=== PATIENT | female | born 1980 | race Two or more races ===

== ENCOUNTER 2017-02-24 11:16 | Emergency (ER) | payer MEDICAID ==
[~2017-02-24] VITALS: Ht 162.6 cm; Wt 90.7 kg
[2017-02-24 11:20] VITALS: BP 107/72
[2017-02-24 11:58] LABS: APPEARANCE,URINE CLEAR; BILIRUBIN, URINE NEGATIVE (NEGATIVE); COLOR,URINE PALE YELLOW; GLUCOSE, URINE (UA) NEGATIVE (NEGATIVE); KETONES,URINE NEGATIVE (NEGATIVE); LEUKOCYTE ESTERASE ,URINE NEGATIVE (NEGATIVE); NITRITE,URINE NEGATIVE (NEGATIVE); PH,URINE 5 (4.5-8.0); PROTEIN,URINE NEGATIVE (NEGATIVE); UROBILINOGEN,URINE NORMAL MG/DL (0.0-1.0)
[2017-02-24] MEDS ORDERED: ACETAMINOPHEN-1 EAC1 ORAL (13:17)
--- NOTE | 2017-02-24 13:32 | Diagnostic Imaging Report ---
Indication: Pelvic pain Technique: Transabdominal and endovaginal pelvic ultrasound was performed. Findings: The uterus measures 8.5 x 6.1 x 3.7 cm. Endometrial echocomplex measures 8.6 meters in thickness. 2 heterogeneous masses are noted within the anterior aspect of the uterus, one measuring 1.6 x 1.8 cm and another measuring 2.5 x 1.5 cm. These demonstrate some internal vascularity upon interrogation with color Doppler. 2 additional similar-appearing lesions are noted within the posterior aspect of the uterus. A 0.6 x 0.8 cm cystic lesion is noted in the cervix compatible with a nabothian cyst. The right ovary measures 2.3 x 1.6 x 1.4 cm/2.6 mL. The left ovary measures 2.8 x 1.7 x 1.3 cm/3.1 mL. Color flow to the bilateral ovaries noted. No appreciable adnexal masses seen. Trace free fluid noted in the pelvis. Impression: Multiple heterogeneous uterine masses possibly representing fibroids. Clinical correlation recommended. More definitive assessment and be made with contrast-enhanced MRI of the pelvis. Bilateral ovaries symmetric in size with documented color flow. No evidence to suggest ovarian torsion at this time. Nabothian cysts in the cervix. Small amount of free pelvic fluid.
[2017-02-24 13:38] VITALS: BP 123/75
--- NOTE | 2017-03-01 18:22 | Emergency Room Report ---
History of Present Illness General Chief Complaint: General Complaint Source: Patient Present Illness HPI Patient is a 36 yo female who presented after increased low back pain. Patient had recently been diagnosed with UTI. Pain was lower and sharp in nature without specific exacerbating factors. She denied increased pain with flexion or standing. Patient denies fever or dysuria. She reports recent cough and congestion. She denies vomiting or being . Allergies: Coded Allergies: No Known Allergies (Unverified , 02/24/17) Patient History Reviewed Nursing Documentation: PMH: Agreed, PSxH: Agreed Nursing Documentation-PMH Past Medical History: No Stated History Review of Systems All Other Systems: negative except mentioned in HPI Physical Exam Vital Signs Date Time Temp Pulse Resp B/P (MAP) Pulse Ox O2 Delivery O2 Flow Rate FiO2 02/24/17 11:20 97.7 20 107/72 99 Room Air 02/24/17 11:20 66 General Appearance: well appearing, no apparent distress, alert, GCS 15, obese Head: normocephalic, atraumatic ENT: hearing grossly normal, normal voice Neck: full range of motion, supple Respiratory: no respiratory distress, speaking full sentences Cardiovascular #1: normal peripheral pulses, regular rate, rhythm, no edema Gastrointestinal: normal inspection, non tender, soft Genitourinary: no CVA tenderness Musculoskeletal: no calf tenderness, decreased range of mation Neurologic: normal gait Psychiatric: mood/affect normal Skin: no rash Medical Decision Making Diagnostic Impression: Primary Impression: Fibroid uterus Additional Impression: Nabothian cyst ER Course Patient presented for low back pain. Differential diagnosis included but was not limited pyelonephritis, pelvic inflammatory disease, fracture, epidural abscess among others. Because of patients complexity imaging studies and laboratory testing was ordered. Pelvic ultrasound read by radiology showed small amount of free fluid , fibroid uterus, without complex ovarian mass or cyst or abnormal ovarian arterial blood flow. Patient was given pain medications. She was advised to follow up with her digital photo printer in the next 1-2 days for recheck. She was to return for increased pain, fever, persistent vomiting or other concerns. Lab Results Impression Labs Test 02/24/17 11:45 Urine Color Pale yellow Urine Appearance Clear Urine pH 5 (4.5-8.0) Urine Specific [place] 1.015 (1.005-1.035) Urine Protein Negative (NEGATIVE) Urine Glucose (UA) Negative (NEGATIVE) Urine Ketones Negative (NEGATIVE) Urine Occult Blood Negative (NEGATIVE) Urine Nitrite Negative (NEGATIVE) Urine Bilirubin Negative (NEGATIVE) Urine Urobilinogen Normal MG/DL (0.0-1.0) Urine Leukocyte Esterase Negative (NEGATIVE) Urine HCG, Qualitative Negative Last Vital Signs Date Time Temp Pulse Resp B/P (MAP) Pulse Ox O2 Delivery O2 Flow Rate FiO2 02/24/17 13:38 72 18 123/75 99 Room Air 02/24/17 11:20 97.7 Status: improved Disposition: HOME, SELF-CARE Condition: Stable Scripts Acetaminophen With Codeine (T#3) (TYLENOL #3 TAB*) Y Tab 2 TAB ORAL Q6H Y for For Pain, #10 TAB Prov: Kendrick Bailey 02/24/17 Patient Instructions: Back Pain, Adult, [id number] Kendrick Bailey Mar 01, 2017 18:22
== END 2017-02-24 13:40 | disposition home or self-care (01) ==
LOC: EMR 11:25
DX: M54.5 Low back pain (principal); D25.9 Leiomyoma of uterus, unspecified; N88.8 Other specified noninflammatory disorders of cervix uteri
CPT/HCPCS: 76830; 76856; 81003; 81025; 99284

== ENCOUNTER 2018-06-24 23:19 | Emergency (ER) | payer MEDICAID, OTHER ==
[~2018-06-24] VITALS: Ht 154.9 cm; Wt 98.0 kg
[~2018-06-24 23:19] MED LIST: ACETAMINOPHEN-1 EAC1 ORAL; CEPHALEXIN500 MG ORAL; NAPROXEN500 M1 ORAL; NKM
[2018-06-24 23:45] VITALS: BP 113/73
--- NOTE | 2018-06-24 23:47 | NUR ---
ED Nurse Note: pt came to ed c/o vaginal itching since monday, pt states she bought OTC vaginal cream and itching went away. a few hours ago she had intercourse and bleeding was noted. pt states itching returned.
[2018-06-25] MEDS ORDERED: Acetaminophen 500mg (ES) tab ORAL ONE
[2018-06-25 00:31] LABS: APPEARANCE,URINE SLIGHTLY CLOUDY; BILIRUBIN, URINE NEGATIVE (NEGATIVE); COLOR,URINE PALE YELLOW; GLUCOSE, URINE (UA) NEGATIVE (NEGATIVE); KETONES,URINE NEGATIVE (NEGATIVE); LEUKOCYTE ESTERASE ,URINE 1+ (NEGATIVE); NITRITE,URINE NEGATIVE (NEGATIVE); PH,URINE 5 (4.5-8.0); PROTEIN,URINE NEGATIVE (NEGATIVE); UROBILINOGEN,URINE NORMAL MG/DL (0.0-1.0)
--- NOTE | 2018-06-25 01:01 | NUR ---
ED Nurse Note: ERMD notified regarding pelvic wet mount result.
--- NOTE | 2018-06-25 01:06 | Emergency Room Report ---
History of Present Illness General Chief Complaint: Female Urogenital Problems Source: Patient Present Illness HPI Patient presents with several days of discharge. Started using a cream earlier today. And she had sex with her and started having severe pain. She denies any dysuria. She also noted some bleeding after having intercourse. In addition to that she had rectal sex with her . She has some pain in that area also. She is not sure if the bleeding is coming per rectum or vaginally. She denies any fevers or chills. No nausea, vomiting diarrhea. Her last period was normal for her. She rates the pain 10/10 at this time and vaginally and more sharp burning and aching. She has not taken any medication. She denies any medical problems. 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 Last Menstrual Period: Jun 10 2018 Now: No Reviewed Nursing Documentation: PMH: Agreed; PSxH: Agreed Nursing Documentation-PMH Past Medical History: No Stated History Review of Systems All Other Systems: negative except mentioned in HPI Physical Exam Vital Signs Date Time Temp Pulse Resp B/P (MAP) Pulse Ox O2 Delivery O2 Flow Rate FiO2 06/24/18 23:33 98.6 77 18 98 Room Air 06/24/18 23:45 113/73 Sp02 EP Interpretation: reviewed, normal General Appearance: well appearing, no apparent distress Head: normocephalic, atraumatic Eyes: bilateral eye normal inspection, bilateral eye PERRL ENT: hearing grossly normal, normal voice Neck: full range of motion, supple Respiratory: no respiratory distress, speaking full sentences Gastrointestinal: normal bowel sounds, non tender, soft, overweight Rectal: other - fissure, small and non-bleeding Genitourinary: no CVA tenderness, adnexa normal, cervix normal, other - vaginal d/c, no active bleeding, no CMT, no external inflammation or lesions, min tenderness entroitus Musculoskeletal: no calf tenderness Neurologic: alert, oriented x3, normal gait, grossly normal Psychiatric: mood/affect normal Skin: no rash Medical Decision Making Diagnostic Impression: Primary Impression: Vaginitis Qualified Codes: N76.0 - Acute vaginitis Additional Impression: Rectal fissure ER Course Patient with vaginal pain after intercourse with discharge for several days. Ddx: vaginitis, UTI, trauma, fissure amongst others. Evaluation with UA. No active bleeding now. Also given analgesia. UA unremarkable. Wet mount with clue cells. Improved with treatment. Discussed need to follow up with Pot Maker. Advised to return if pain increases or increased bleeding. Patient stable for outpatient observation and treatment. Laboratory Tests Test 06/24/18 23:55 Urine Color Pale yellow Urine Appearance Slightly cloudy Urine pH 5 (4.5-8.0) Urine Specific [place] 1.005 (1.005-1.035) Urine Protein Negative (NEGATIVE) Urine Glucose (UA) Negative (NEGATIVE) Urine Ketones Negative (NEGATIVE) Urine Blood 4+ (NEGATIVE) H Urine Nitrite Negative (NEGATIVE) Urine Bilirubin Negative (NEGATIVE) Urine Urobilinogen Normal MG/DL (0.0-1.0) Urine Leukocyte Esterase 1+ (NEGATIVE) H Urine RBC 5-10 /HPF (0 - 2) H Urine WBC 0-2 /HPF (0 - 2) Urine Squamous Epithelial Cells Moderate /LPF (NONE/OCC) H Urine Amorphous Sediment Moderate /LPF (NONE) H Urine Bacteria Few /HPF (NONE) Urine HCG, Qualitative Negative (NEGATIVE) Microbiology Date/Time Source Procedure Growth Status 06/25/18 00:40 Vaginal Wet Prep - Final Complete Last Vital Signs Date Time Temp Pulse Resp B/P (MAP) Pulse Ox O2 Delivery O2 Flow Rate FiO2 06/25/18 01:16 98.7 68 21 128/57 100 Room Air Status: improved Disposition: HOME, SELF-CARE Condition: Improved Scripts Tramadol Hcl* (ULTRAM*) 50 Mg Tablet 50 MG ORAL Q6H PRN for For Pain, #8 TAB 0 Refills Prov: Nikolay Artis MD 06/25/18 Metronidazole* (FLAGYL*) 500 Mg Tablet 500 MG ORAL BID, #14 TAB Prov: Nikolay Artis MD 06/25/18 Bacitracin (Bacitracin) 28.4 Gm Oint...g. 1 APPLIC TOPIC BID, #20 GM Prov: Nikolay Artis MD 06/25/18 Referrals: [facility],REFERRING (PCP) Nikolay Artis MD June 25, 2018 01:06
[2018-06-25] MEDS ORDERED: METRONIDAZOLE500 MG ORAL (01:10)
[2018-06-25] MEDS ORDERED: TRAMADOL HCL50 MG ORAL (01:10)
[2018-06-25] MEDS ORDERED: BACITRACIN15 GM TOPIC (01:10)
[2018-06-25] MEDS ORDERED: metroNIDAZOLE 500mg tab ORAL ONE (01:15)
[2018-06-25 01:16] VITALS: BP 128/57
--- NOTE | 2018-06-25 01:17 | NUR ---
ER DISCHARGE NOTE: Patient is cleared to be discharged per ERMD, pt is aox4, on room air, with stable vital signs. pt was given dc and prescription instructions, pt was able to verbalize understanding, pt id band removed. pt is able to ambulate with steady gait. pt took all belongings.
== END 2018-06-25 01:18 | disposition home or self-care (01) ==
LOC: EMR 23:56
DX: N76.0 Acute vaginitis (principal); K60.2 Anal fissure, unspecified
CPT/HCPCS: 81003; 81025; 87210; 99283

== ENCOUNTER 2019-02-01 16:01 | Emergency (ER) | payer OTHER ==
[~2019-02-01] VITALS: Ht 160 cm; Wt 95.3 kg
[~2019-02-01 16:01] MED LIST changes: +BACITRACIN15 GM TOPIC; +METRONIDAZOLE500 MG ORAL; +TRAMADOL HCL50 MG ORAL
--- NOTE | 2019-02-01 16:15 | NUR ---
ED Nurse Note: patient ambulated to ed c/o abdominal pain nausea and vomitting x 0530. patient denies diarrhea. ao4. nad. vss. attached to monitor. changed into gown. iv access established. blood and urine collected; sent down to lab.
[2019-02-01 16:30] VITALS: BP 133/77
[2019-02-01 16:58] LABS: BASOPHILS % (AUTO) 0.3 % (0.0-2.0); EOSINOPHILS % (AUTO) 0.2 % (0.0-3.0); HEMATOCRIT 35.9 % (37.0-47.0); HEMOGLOBIN 11.4 G/DL (12.0-16.0); LYMPHOCYTES % (AUTO) 16.1 % (20.0-45.0); MEAN CORPUSCULAR VOLUME 76 FL (80-99); MONOCYTES % (AUTO) 3.9 % (1.0-10.0); NEUTROPHILS % (AUTO) 79.5 % (45.0-75.0); PLATELET COUNT 389 K/UL (150-450); RED BLOOD COUNT 4.75 M/UL (4.20-5.40); RED CELL DISTRIBUTION WIDTH 14.2 % (11.6-14.8)
[2019-02-01 17:15] LABS: APPEARANCE,URINE CLOUDY; BILIRUBIN, URINE NEGATIVE (NEGATIVE); GLUCOSE, URINE (UA) NEGATIVE (NEGATIVE); KETONES,URINE 1+ (NEGATIVE); LEUKOCYTE ESTERASE ,URINE 1+ (NEGATIVE); NITRITE,URINE NEGATIVE (NEGATIVE); PH,URINE 6 (4.5-8.0); PROTEIN,URINE 2+ (NEGATIVE); UROBILINOGEN,URINE NORMAL MG/DL (0.0-1.0)
[2019-02-01 17:17] LABS: ANION GAP 10 mmol/L (5-15); BLOOD UREA NITROGEN 12 mg/dL (7-18); CARBON DIOXIDE 27 MMOL/L (21-32); CHLORIDE 103 MMOL/L (98-107); CREATININE 0.6 MG/DL (0.55-1.30); POTASSIUM 3.5 MMOL/L (3.5-5.1); SODIUM 140 MMOL/L (136-145)
[2019-02-01 17:18] LABS: COLOR,URINE YELLOW
[2019-02-01 17:22] LABS: ALANINE AMINOTRANSFERASE 16 U/L (12-78); ALBUMIN 3.8 G/DL (3.4-5.0); ALBUMIN/GLOBULIN RATIO 0.9 (1.0-2.7); ALKALINE PHOSPHATASE 79 U/L (46-116); ASPARTATE AMINO TRANSFERASE 11 U/L (15-37); BILIRUBIN,TOTAL 0.3 MG/DL (0.2-1.0)
[2019-02-01 17:30] VITALS: BP 111/76
--- NOTE | 2019-02-01 17:47 | Emergency Room Report ---
History of Present Illness General Chief Complaint: Abdominal Pain Source: Patient Present Illness HPI 38-year-old female with no significant past medical history here complaining of 2 days of suprapubic pain and pressure, urinary frequency and urgency. Also complains of waking up this morning with left lower quadrant abdominal pain rating a 3 out of 10 upon palpation, and a few bouts of nonbloody emesis. Does not recall if she ate anything out of the ordinary last night. Denies any alcohol consumption, drug use, marijuana use, tobacco smoke. Complains of chills however vitals appear to be within normal limits. Reports that she is currently on her menses, has a Nexplanon implanted x6 months. Patient denies diarrhea and constipation at this time. Denies flatulence, recent travel, or any history of abdominal surgery. Patient is non-tender to palpation about the abdomen. I decided not to order CT scan of the abdomen as patient is nontender , vitals within normal limits, blood work within normal limits. Has not taken medication for symptom relief Allergies: Coded Allergies: No Known Allergies (Unverified , 02/24/17) Patient History Past Medical History: see triage record Past Surgical History: none Pertinent Family History: none Now: No Immunizations: UTD Reviewed Nursing Documentation: PMH: Agreed; PSxH: Agreed Nursing Documentation-PMH Past Medical History: No Stated History Review of Systems All Other Systems: negative except mentioned in HPI Physical Exam Vital Signs Date Time Temp Pulse Resp B/P (MAP) Pulse Ox O2 Delivery O2 Flow Rate FiO2 02/01/19 16:08 97.9 85 17 133/77 (95) 99 Room Air Sp02 EP Interpretation: reviewed, normal General Appearance: no apparent distress, alert, GCS 15, non-toxic Head: normocephalic, atraumatic Eyes: bilateral eye normal inspection, bilateral eye PERRL ENT: hearing grossly normal, normal pharynx, no angioedema, normal voice Neck: full range of motion, supple, no meningismus, no bony tend, supple/symm/ no masses Respiratory: chest non-tender, lungs clear, normal breath sounds, no rhonchi, no retraction, no wheezing, speaking full sentences Cardiovascular #1: regular rate, rhythm, no edema, no murmur, normal capillary refill Cardiovascular #2: 2+ carotid (R), 2+ carotid (L), 2+ radial (R), 2+ radial (L) Gastrointestinal: normal bowel sounds, non tender, soft, no mass, no organomegaly, no peritonitis, no bruit, non-distended, no guarding, no hernia, no pulsatile mass, no rebound, other - Negative McBurney's and Rovsing's Rectal: deferred Genitourinary: no CVA tenderness Musculoskeletal: back normal, no calf tenderness, pelvis stable Neurologic: alert, motor strength/tone normal, oriented x3, sensory intact, responsive, speech normal Psychiatric: judgement/insight normal, memory normal, mood/affect normal, no suicidal/homicidal ideation Skin: no rash Lymphatic: no adenopathy Medical Decision Making PA Attestation All my diagnosis and treatment plans were reviewed ad discussed with my supervising physician Dr. Cortez Diagnostic Impression: Primary Impression: UTI (urinary tract infection) Additional Impression: Nausea & vomiting ER Course 38-year-old female with no significant past medical history here complaining of 2 days of suprapubic pain and pressure, urinary frequency and urgency. Also complains of waking up this morning with left lower quadrant abdominal pain rating a 3 out of 10 upon palpation, and a few bouts of nonbloody emesis. Does not recall if she ate anything out of the ordinary last night. Denies any alcohol consumption, drug use, marijuana use, tobacco smoke. Complains of chills however vitals appear to be within normal limits. Reports that she is currently on her menses, has a Nexplanon implanted x6 months. Patient denies diarrhea and constipation at this time. Denies flatulence, recent travel, or any history of abdominal surgery. Patient is non-tender to palpation about the abdomen. I decided not to order CT scan of the abdomen as patient is nontender , vitals within normal limits, blood work within normal limits. Has not taken medication for symptom relief Ddx considered but are not limited to: UTI, pyelonephritis, urinary incontinence , prolapsed bladder, appendicitis, gastroenteritis Vital signs: are WNL, pt. is afebrile H&PE are most consistent with: UTI, nausea vomiting most likely secondary to viral gastroenteritis ORDERS: UA, urine cx, CBC, CMP, UA lipase, toxin, urine test, Zofran, Macrobid ED INTERVENTIONS: NS bolus, Zofran, Pepcid DISCHARGE: At this time pt. is stable for d/c to home. Will provide printed patient care instructions, and any necessary prescriptions. Care plan and follow up instructions have been discussed with the patient prior to discharge. Patient to follow-up with primary care provider, take medication as directed, if worsening symptoms return to emergency room. At this time no further imaging is necessary as patient is nontender to palpation and vital signs are within normal limits as well as blood work. Last Vital Signs Date Time Temp Pulse Resp B/P (MAP) Pulse Ox O2 Delivery O2 Flow Rate FiO2 02/01/19 16:30 97.9 85 17 133/77 99 Room Air Disposition: HOME, SELF-CARE Condition: Stable Scripts Nitrofurantoin Monohyd/M-Cryst* (MACROBID 100 MG*) 100 Mg Capsule 100 MG ORAL EVERY 12 HOURS for 7 Days, #14 CAP Prov: Dominique Wong 02/01/19 Ondansetron (Zofran) 4 Mg Tablet 4 MG ORAL Q6H PRN for Nausea & Vomiting, #14 TAB Prov: Dominique Wong 02/01/19 Patient Instructions: Abdominal Pain, Adult, Urinary Tract Infection, Easy-to- Read Additional Instructions: Take medication as directed, follow-up with your primary care provider, if worsening symptoms return to the emergency room Dominique Wong Feb 01, 2019 17:47
[2019-02-01] MEDS ORDERED: ZOFRAN4 M1 ORAL (17:53)
[2019-02-01] MEDS ORDERED: NITROFURANTOIN100 M2 ORAL (17:53)
[2019-02-01 18:00] VITALS: BP 133/77
--- NOTE | 2019-02-01 18:00 | NUR ---
ER DISCHARGE NOTE: Patient is cleared to be discharged per ERMD, pt is aox4, on room air, with stable vital signs. pt was given dc and prescription instructions, pt was able to verbalize understanding, pt id band and iv site removed without complications. pt is able to ambulate with steady gait. pt took all belongings.
== END 2019-02-01 18:00 | disposition home or self-care (01) ==
LOC: EMR 17:50
DX: N39.0 Urinary tract infection, site not specified (principal); R11.2 Nausea with vomiting, unspecified
CPT/HCPCS: 36415; 80053; 80307; 81003; 81025; 83690; 85025; 96361; 96374; 96375; J2405; J7030; S0028; Z7502; 99284

== ENCOUNTER 2019-03-27 04:06 | Emergency (ER) | payer OTHER ==
[~2019-03-27] VITALS: Ht 160 cm; Wt 95.3 kg
[2019-03-27 04:06] VITALS: BP 102/62
[~2019-03-27 04:06] MED LIST changes: +NITROFURANTOIN100 M2 ORAL; +ZOFRAN4 M1 ORAL
--- NOTE | 2019-03-27 04:06 | NUR ---
ED Nurse Note: Patient walked in from home d/t nausea and diarrhea for 2 days, denies vomiting. Patient aao x 4 and ambulatory. Patient states she has also has moderate vaginal bleeding for 3 weeks with clots and mid-abdominal pain 8/10, non-radiating. Patient placed in gown and tactical air control party. No acute distress noted. IV line initiated on Left AC, patent and draining. Blood and urine collected, sent to lab.
--- NOTE | 2019-03-27 04:33 | Emergency Room Report ---
History of Present Illness General Chief Complaint: Vaginal Source: Patient Present Illness HPI Disclaimer: Please note that this report is being documented using DRAGON technology. This can lead to erroneous entry secondary to incorrect interpretation by the dictating instrument. HPI: 38-year-old female presents for evaluation of diarrhea and nausea. Symptoms began 3 days ago. She noted some nonbloody diarrhea which resolved yesterday and then returned early this morning. States it is been near constant since onset. Denies hematochezia or melena. Denies dysuria. She reports nausea without vomiting. Reports abdominal soreness diffusely but no focal pain. States she feels warm but has no objective temperature readings at home. She took Tylenol prior to arrival. Patient is all complaining of increased vaginal spotting and passage of clots. Has been ongoing for 3 weeks when her last period started. She has an IUD in place since last year. Denies lightheadedness, dizziness, syncope, shortness of breath. Follows up regularly with STORY EDITOR. Denies vaginal discharge. PMH: Denies PSH: Denies Allergies: Denies Social Hx: Denies Allergies: Coded Allergies: No Known Allergies (Unverified , 02/24/17) Patient History Last Menstrual Period: bleeding snce mar 04 Nursing Documentation-PMH Past Medical History: No Stated History Review of Systems All Other Systems: negative except mentioned in HPI Physical Exam Vital Signs Date Time Temp Pulse Resp B/P (MAP) Pulse Ox O2 Delivery O2 Flow Rate FiO2 03/27/19 04:12 97.5 84 18 108/76 (87) 100 Room Air General: Awake and alert, no acute distress HEENT: NC/AT. EOMI. Cardiovascular: RRR. S1 and S2 normal. No murmur appreciated Resp: Normal work of breathing. No cough, wheezing or crackles appreciated Abdomen: Abdomen is soft, nondistended, obese. Mildly tender in the epigastrium , periumbilical and suprapubic region. No rebound. Negative Elise's. No CVA tenderness. Skin: Intact. No abrasions, laceration or rash over the exposed skin. Scar on the right flank clean dry and intact MSK: Normal tone and bulk. Moving all extremities. No obvious deformity. Neuro: Awake and alert. Mentating appropriately. Medical Decision Making Diagnostic Impression: Primary Impression: Abnormal uterine bleeding Additional Impression: Acute diarrhea ER Course 38-year-old female presents for evaluation of nausea and diarrhea over the past few days as well as 3 weeks of abnormal uterine bleeding. Differential includes was not limited to gastritis, gastroenteritis, pancreatitis, cholecystitis, appendicitis, obstruction, uterine fibroids, endometriosis, ovarian torsion, ovarian cyst, tubo-ovarian abscess, ectopic to name a few. While the patient states she had no history of fibroids review of medical chart shows an ultrasound from 2018 showing multiple fibroids in the uterus. Most likely the cause of her bleeding but will assess the extent with CBC. Will obtain other labs to evaluate for dehydration and other abdominal and pelvic pathology though a viral syndrome is most likely. Will start antiemetics, IV fluids Laboratory Tests Test 03/27/19 04:44 White Blood Count 8.0 K/UL (4.8-10.8) Red Blood Count 4.46 M/UL (4.20-5.40) Hemoglobin 11.2 G/DL (12.0-16.0) L Hematocrit 34.6 % (37.0-47.0) L Mean Corpuscular Volume 78 FL (80-99) L Mean Corpuscular Hemoglobin 25.2 PG (27.0-31.0) L Mean Corpuscular Hemoglobin Concent 32.5 G/DL (32.0-36.0) Red Cell Distribution Width 13.5 % (11.6-14.8) Platelet Count 314 K/UL (150-450) Mean Platelet Volume 6.8 FL (6.5-10.1) Neutrophils (%) (Auto) 67.5 % (45.0-75.0) Lymphocytes (%) (Auto) 19.4 % (20.0-45.0) L Monocytes (%) (Auto) 10.3 % (1.0-10.0) H Eosinophils (%) (Auto) 2.1 % (0.0-3.0) Basophils (%) (Auto) 0.7 % (0.0-2.0) Prothrombin Time 10.4 SEC (9.30-11.50) Prothrombin Time INR 1.0 (0.9-1.1) Activated Partial Thromboplast Time 30 SEC (23-33) Urine Color Pale yellow Urine Appearance Slightly cloudy Urine pH 5 (4.5-8.0) Urine Specific [place] 1.025 (1.005-1.035) Urine Protein 2+ (NEGATIVE) H Urine Glucose (UA) Negative (NEGATIVE) Urine Ketones 1+ (NEGATIVE) H Urine Blood 5+ (NEGATIVE) H Urine Nitrite Negative (NEGATIVE) Urine Bilirubin Negative (NEGATIVE) Urine Urobilinogen Normal MG/DL (0.0-1.0) Urine Leukocyte Esterase 1+ (NEGATIVE) H Urine RBC Tntc /HPF (0 - 2) H Urine WBC 0-2 /HPF (0 - 2) Urine Squamous Epithelial Cells Few /LPF (NONE/OCC) Urine Bacteria Few /HPF (NONE) Urine HCG, Qualitative Negative (NEGATIVE) Sodium Level 139 MMOL/L (136-145) Potassium Level 3.8 MMOL/L (3.5-5.1) Chloride Level 105 MMOL/L (98-107) Carbon Dioxide Level 24 MMOL/L (21-32) Anion Gap 11 mmol/L (5-15) Blood Urea Nitrogen 13 mg/dL (7-18) Creatinine 0.6 MG/DL (0.55-1.30) Estimate Glomerular Filtration Rate > 60 mL/min (>60) Glucose Level 111 MG/DL (74-106) H Calcium Level 8.5 MG/DL (8.5-10.1) Total Bilirubin 0.2 MG/DL (0.2-1.0) Aspartate Amino Transferase (AST) 13 U/L (15-37) L Alanine Aminotransferase (ALT) 21 U/L (12-78) Alkaline Phosphatase 71 U/L (46-116) Total Protein 7.9 G/DL (6.4-8.2) Albumin 3.8 G/DL (3.4-5.0) Globulin 4.1 g/dL Albumin/Globulin Ratio 0.9 (1.0-2.7) L Lipase 166 U/L (73-393) Reevaluation Time: 05:34 Last Vital Signs Date Time Temp Pulse Resp B/P (MAP) Pulse Ox O2 Delivery O2 Flow Rate FiO2 03/27/19 04:12 97.5 84 18 108/76 (87) 100 Room Air Reevaluation Impression Labs show slight anemia though patient does not require transfusion. Labs otherwise within normal limits. No evidence of infection on urinalysis. No further bleeding in the ER at this time. Given that the patient has a history of thyroid has been 2 years since her last ultrasound will discharge with OB/ PATIENT SAFETY MANAGER follow-up. She will have a repeat ultrasound on outpatient basis. Will treat with Zofran for her current symptoms and encouraged to hydrate. Discussed reasons to return to the emergency department well as need to follow- up with her PMD and STORY EDITOR. She understands and agrees with treatment plan will be discharged home. Disposition: HOME, SELF-CARE Condition: Stable Scripts Ondansetron (Zofran) 4 Mg Tablet 4 MG ORAL Q6H PRN for Nausea & Vomiting, #14 TAB Prov: Han Kelly MD 03/27/19 Referrals: [facility],REFERRING (PCP) Han Kelly MD Mar 27, 2019 04:33
[2019-03-27 04:59] LABS: BASOPHILS % (AUTO) 0.7 % (0.0-2.0); EOSINOPHILS % (AUTO) 2.1 % (0.0-3.0); HEMATOCRIT 34.6 % (37.0-47.0); HEMOGLOBIN 11.2 G/DL (12.0-16.0); LYMPHOCYTES % (AUTO) 19.4 % (20.0-45.0); MEAN CORPUSCULAR VOLUME 78 FL (80-99); MONOCYTES % (AUTO) 10.3 % (1.0-10.0); NEUTROPHILS % (AUTO) 67.5 % (45.0-75.0); PLATELET COUNT 314 K/UL (150-450); RED BLOOD COUNT 4.46 M/UL (4.20-5.40); RED CELL DISTRIBUTION WIDTH 13.5 % (11.6-14.8)
[2019-03-27 05:13] LABS: APPEARANCE,URINE SLIGHTLY CLOUDY; BILIRUBIN, URINE NEGATIVE (NEGATIVE); COLOR,URINE PALE YELLOW; GLUCOSE, URINE (UA) NEGATIVE (NEGATIVE); KETONES,URINE 1+ (NEGATIVE); LEUKOCYTE ESTERASE ,URINE 1+ (NEGATIVE); NITRITE,URINE NEGATIVE (NEGATIVE); PH,URINE 5 (4.5-8.0); PROTEIN,URINE 2+ (NEGATIVE); UROBILINOGEN,URINE NORMAL MG/DL (0.0-1.0)
[2019-03-27 05:14] LABS: ANION GAP 11 mmol/L (5-15); BLOOD UREA NITROGEN 13 mg/dL (7-18); CALCIUM 8.5 MG/DL (8.5-10.1); CARBON DIOXIDE 24 MMOL/L (21-32); CHLORIDE 105 MMOL/L (98-107); CREATININE 0.6 MG/DL (0.55-1.30); POTASSIUM 3.8 MMOL/L (3.5-5.1); SODIUM 139 MMOL/L (136-145)
[2019-03-27 05:19] LABS: ALANINE AMINOTRANSFERASE 21 U/L (12-78); ALBUMIN 3.8 G/DL (3.4-5.0); ALBUMIN/GLOBULIN RATIO 0.9 (1.0-2.7); ALKALINE PHOSPHATASE 71 U/L (46-116); ASPARTATE AMINO TRANSFERASE 13 U/L (15-37); BILIRUBIN,TOTAL 0.2 MG/DL (0.2-1.0)
[2019-03-27] MEDS ORDERED: ZOFRAN4 M1 ORAL (05:19)
--- NOTE | 2019-03-27 05:28 | NUR ---
ED Nurse Note: ERMD at bedside.
--- NOTE | 2019-03-27 05:45 | NUR ---
ER DISCHARGE NOTE: Patient is cleared to be discharged per ERMD, pt is aox4, on room air, with stable vital signs. pt was given dc and prescription instructions, pt was able to verbalize understanding, pt id band and iv site removed intact without complications. pt is able to ambulate with steady gait. pt took all belongings. pt stable upon discharge.
[2019-03-27 05:47] VITALS: BP 110/85
== END 2019-03-27 05:45 | disposition home or self-care (01) ==
LOC: EMR 04:21
DX: N93.8 Other specified abnormal uterine and vaginal bleeding (principal); R19.7 Diarrhea, unspecified
CPT/HCPCS: 80053; 81003; 81025; 83690; 85025; 85610; 85730; 96361; 96374; J2405; J7030; Z7502; 99284